=== PATIENT | male | born 1975 | race Two or more races ===

== ENCOUNTER 2018-09-08 18:32 | Emergency (ER) | payer SELFPAY ==
[~2018-09-08] VITALS: Ht 170.2 cm; Wt 77.1 kg
--- NOTE | 2018-09-08 18:58 | PHYS DOC ---
Adult General Chief Complaint Chief Complaint: ABDOMINAL PAIN HPI HPI Patient is a 43 year old male presented to ER today for evaluation of epigastric abdominal pain since yesterday. Symptoms have been getting worse toda y, associated with nausea vomiting. Patient was seen at [facility] about 6 months ago for the same problem, diagnosed with H. pylori infection, he was given antibiotics and took the medications did get better. Patient was eating something yesterday and the symptoms started again. She denies any fever. Patient denies any vomiting blood, no dark stool. he says he is not an alcoholic. Review of Systems Review of Systems Constitutional: Denies fever or chills [] Eyes: Denies change in visual acuity, redness, or eye pain [] HENT: Denies nasal congestion or sore throat [] Respiratory: Denies cough or shortness of breath [] Cardiovascular: No additional information not addressed in HPI [] GI: Positive for abdominal pain, nausea, vomiting, NO bloody stools or diarrhea [] : Denies dysuria or hematuria [] Musculoskeletal: Denies back pain or joint pain [] Integument: Denies rash or skin lesions [] Neurologic: Denies headache, focal weakness or sensory changes [] Endocrine: Denies polyuria or polydipsia [] All other systems were reviewed and found to be within normal limits, except as documented in this note. Current Medications Current Medications Current Medications Medications (Trade) Dose Ordered Sig/Kimber Start Time Stop Time Status Last Admin Dose Admin Famotidine (Pepcid Vial) 20 mg 1X ONCE 09/08/18 19:30 09/08/18 19:31 DC 09/08/18 19:28 20 MG Info (CONTRAST GIVEN -- Rx MONITORING) 1 each PRN DAILY PRN 09/08/18 20:00 09/10/18 19:59 Iohexol (Omnipaque 300 Mg/ml) 75 ml 1X ONCE 09/08/18 20:15 09/08/18 20:16 DC 09/08/18 20:09 75 ML Multi-Ingredient Mouthwash/Gargle (Gi Cocktail) 20 ml 1X ONCE 09/08/18 19:30 09/08/18 19:31 DC 09/08/18 19:28 20 ML Ondansetron HCl (Zofran) 4 mg 1X ONCE 09/08/18 19:30 09/08/18 19:31 DC 09/08/18 19:28 4 MG Sodium Chloride 1,000 ml @ 1,000 mls/hr 1X ONCE 09/08/18 19:30 09/08/18 20:29 DC 09/08/18 19:28 1,000 MLS/HR Allergies Allergies Allergies Coded Allergies Type Severity Reaction Last Updated Verified No Known Drug Allergies 09/08/18 No Physical Exam Physical Exam Constitutional: Well developed, well nourished, no acute distress, non-toxic appearance. [] HENT: Normocephalic, atraumatic, bilateral external ears normal, oropharynx moist, no oral exudates, nose normal. [] Eyes: PERRLA, EOMI, conjunctiva normal, no discharge. [] Neck: Normal range of motion, no tenderness, supple, no stridor. [] Cardiovascular:Heart rate regular rhythm, no murmur [] Lungs & Thorax: Bilateral breath sounds clear to auscultation [] Abdomen: Bowel sounds normal, soft, There is tenderness to palpation in epigastric area, no masses, no pulsatile masses. [] Skin: Warm, dry, no erythema, no rash. [] Back: No tenderness, no CVA tenderness. [] Extremities: No tenderness, no cyanosis, no clubbing, ROM intact, no edema. There two healing wound on left leg. Neurologic: Alert and oriented X 3, normal motor function, normal sensory function, no focal deficits noted. [] Psychologic: Affect normal, judgement normal, mood normal. [] Current Patient Data Vital Signs Vital Signs Date Time Temp Pulse Resp B/P (MAP) Pulse Ox O2 Delivery O2 Flow Rate FiO2 09/08/18 20:49 62 18 110/71 (84) 98 Room Air 09/08/18 18:48 97.6 97.6 Lab Values Laboratory Tests Test 09/08/18 19:26 09/08/18 20:12 White Blood Count 13.0 x10^3/uL (4.0-11.0) H Red Blood Count 5.34 x10^6/uL (4.30-5.70) Hemoglobin 15.8 g/dL (13.0-17.5) Hematocrit 45.8 % (39.0-53.0) Mean Corpuscular Volume 86 fL (79-100) Mean Corpuscular Hemoglobin 30 pg (25-35) Mean Corpuscular Hemoglobin Concent 35 g/dL (31-37) Red Cell Distribution Width 12.5 % (11.5-14.5) Platelet Count 381 x10^3/uL (140-400) Neutrophils (%) (Auto) 91 % (31-73) H Lymphocytes (%) (Auto) 5 % (24-48) L Monocytes (%) (Auto) 3 % (0-9) Eosinophils (%) (Auto) 0 % (0-3) Basophils (%) (Auto) 0 % (0-3) Neutrophils # (Auto) 11.8 x10^3/uL (1.8-7.7) H Lymphocytes # (Auto) 0.7 x10^3/uL (1.0-4.8) L Monocytes # (Auto) 0.4 x10^3/uL (0.0-1.1) Eosinophils # (Auto) 0.0 x10^3/uL (0.0-0.7) Basophils # (Auto) 0.1 x10^3/uL (0.0-0.2) Segmented Neutrophils % 90 % (35-66) H Lymphocytes % 6 % (24-48) L Monocytes % 4 % (0-10) Platelet Estimate Increased (ADEQUATE) Anisocytosis Slight Sodium Level 136 mmol/L (136-145) Potassium Level 4.2 mmol/L (3.5-5.1) Chloride Level 100 mmol/L (98-107) Carbon Dioxide Level 29 mmol/L (21-32) Anion Gap 7 (6-14) Blood Urea Nitrogen 11 mg/dL (8-26) Creatinine 0.9 mg/dL (0.7-1.3) Estimated GFR (Cockcroft-Gault) 91.7 BUN/Creatinine Ratio 12 (6-20) Glucose Level 121 mg/dL (70-99) H Calcium Level 8.9 mg/dL (8.5-10.1) Total Bilirubin 0.4 mg/dL (0.2-1.0) Aspartate Amino Transferase (AST) 28 U/L (15-37) Alanine Aminotransferase (ALT) 73 U/L (16-63) H Alkaline Phosphatase 75 U/L (46-116) Total Protein 7.4 g/dL (6.4-8.2) Albumin 3.0 g/dL (3.4-5.0) L Albumin/Globulin Ratio 0.7 (1.0-1.7) L Lipase 92 U/L (73-393) Urine Color Yellow Urine Clarity Clear Urine pH 7.5 Urine Specific [place] >=1.030 Urine Protein Negative mg/dL (NEG-TRACE) Urine Glucose (UA) Negative mg/dL (NEG) Urine Ketones (Stick) Negative mg/dL (NEG) Urine Blood Negative (NEG) Urine Nitrite Negative (NEG) Urine Bilirubin Negative (NEG) Urine Urobilinogen Dipstick 1.0 mg/dL (0.2 mg/dL) Urine Leukocyte Esterase Negative (NEG) Urine RBC 0 /HPF (0-2) Urine WBC Occ /HPF (0-4) Urine Squamous Epithelial Cells Occ /LPF Urine Bacteria 0 /HPF (0-FEW) Laboratory Tests 09/08/18 19:26 Laboratory Tests 09/08/18 19:26 EKG EKG [] Radiology/Procedures Radiology/Procedures [][facility] [address] [place], [place] [id number] IMAGING REPORT Signed PATIENT: DULCE MARIA AZAR ACCOUNT: [id number] : 1975 LOCATION: ER AGE: 43 SEX: M EXAM STATUS: REG ER ORD. PHYSICIAN: ANGLE REYES DO REASON: MID UPPER abdominal pain SINCE YESTERDAY PROCEDURE: CT ABD PELV W/ IV CONTRST ONLY CT SCAN OF THE ABDOMEN AND PELVIS WITH IV CONTRAST. History: Mid and upper abdominal pain since yesterday Comparison:None. Procedure: Contiguous axial images of the abdomen and pelvis were performed after the administration of 75 cc of Omni 350 IV contrast and without oral contrast. CT Abdomen with contrast: Findings: Liver: Unremarkable Spleen: Unremarkable Pancreas: Unremarkable Adrenal Glands: Unremarkable Kidneys: Unremarkable There is no mass or lymphadenopathy. There is no free air. There is no free fluid. The appendix is normal. Impression: No acute findings. End Impression CT Pelvis with Contrast: Findings: There is fat-containing inguinal canal hernias left greater than right. The urinary bladder appears normal. There is no free fluid. There is no lymphadenopathy. Impression: No acute findings. PQRS Compliance Statement: One or more of the following individualized dose reduction techniques were utilized for this examination: 1. Automated exposure control 2. Adjustment of the mA and/or kV according to patient size 3. Use of iterative reconstruction technique Electronically signed by: Phyllis Kendrick III, MD (09/08/2018 9:21 PM) [facility] DICTATED and SIGNED BY: PHYLLIS KENDRICK III, MD DATE: 09/08/182120 Course & Med Decision Making Course & Med Decision Making Pertinent Labs and Imaging studies reviewed. (See chart for details) [] Dragon Disclaimer Dragon Disclaimer This electronic medical record was generated, in whole or in part, using a voice recognition dictation system. Departure Departure Impression: Primary Impression: Acute gastritis Disposition: HOME, SELF-CARE Condition: STABLE Referrals: NO PCP (PCP) follow up with your family doctor for further evaluation and referral to a GI specialist Patient Instructions: Gastritis, Adult Scripts Omeprazole Magnesium (PRILOSEC OTC) 20 Mg Tablet. 1 TAB PO DAILY, #30 TAB 3 Refills Prov: ANGLE REYES DO 09/08/18 Sucralfate (CARAFATE) 1 Gm Tablet 1 TAB PO QID for 14 Days, #56 TAB 1 Refill Prov: ANGLE REYES DO 09/08/18 ANGLE REYES DO Sep 08, 2018 18:58
[2018-09-08] MEDS ORDERED: ONDANSETRON PF 4 MG/2 ML VIAL. IV ONE (19:30)
[2018-09-08] MEDS ORDERED: LIDO:MAALOX 1:1 20 ML SINGLE DOSE. SWSW ONE (19:30)
[2018-09-08] MEDS ORDERED: FAMOTIDINE 20 MG/2 ML VIAL IVP ONE (19:30)
[2018-09-08] MEDS ORDERED: IV NORMAL SALINE 1000ML BAG 1,000 ML IV ONE (19:30)
[2018-09-08 19:32] LABS: BASO # 0.1 x10^3/uL (0.0-0.2); BASO % 0 % (0-3); EOS % 0 % (0-3); HEMATOCRIT 45.8 % (39.0-53.0); HEMOGLOBIN 15.8 g/dL (13.0-17.5); LYMPH # 0.7 x10^3/uL (1.0-4.8); LYMPH % 5 % (24-48); MEAN CORPUSCULAR HEMOGLOBIN 30 pg (25-35); MEAN CORPUSCULAR HGB CONC 35 g/dL (31-37); MEAN CORPUSCULAR VOLUME 86 fL (79-100); MONO # 0.4 x10^3/uL (0.0-1.1); MONO % 3 % (0-9); NEUT # 11.8 x10^3/uL (1.8-7.7); NEUT % 91 % (31-73); PLATELET COUNT 381 x10^3/uL (140-400); RED BLOOD COUNT 5.34 x10^6/uL (4.30-5.70); RED CELL DISTRIBUTION WIDTH 12.5 % (11.5-14.5)
[2018-09-08 19:45] LABS: CALCIUM 8.9 mg/dL (8.5-10.1); CREATININE 0.9 mg/dL (0.7-1.3); GFR 91.7; POTASSIUM 4.2 mmol/L (3.5-5.1)
[2018-09-08 19:46] LABS: ALBUMIN/GLOBULIN RATIO 0.7 (1.0-1.7); TOTAL BILIRUBIN 0.4 mg/dL (0.2-1.0); TOTAL PROTEIN 7.4 g/dL (6.4-8.2)
[2018-09-08] MEDS ORDERED: CONTRAST GIVEN. MC PRN (20:00)
[2018-09-08] MEDS ORDERED: IOHEXOL 300 MG/ML 100ML VIAL. IV ONE (20:15)
[2018-09-08 20:18] LABS: % LYMPHS 6 % (24-48); % MONOS 4 % (0-10); % SEGS 90 % (35-66); ANISOCYTOSIS SLIGHT; PLT ESTIMATE INCREASED (ADEQUATE)
[2018-09-08 20:25] LABS: BILIRUBIN,URINE NEGATIVE (NEG); CLARITY,URINE CLEAR; COLOR,URINE YELLOW; NITRITE,URINE NEGATIVE (NEG); PH,URINE 7.5; PROTEIN,URINE NEGATIVE (NEG-TRACE)
[2018-09-08 20:35] LABS: BACTERIA,URINE 0 /HPF (0-FEW); RBC,URINE 0 /HPF (0-2); SQUAMOUS EPITHELIAL CELL,UR OCC /LPF; WBC,URINE OCC /HPF (0-4)
--- NOTE | 2018-09-08 21:23 | RAD ---
CT SCAN OF THE ABDOMEN AND PELVIS WITH IV CONTRAST. History: Mid and upper abdominal pain since yesterday Comparison:None. Procedure: Contiguous axial images of the abdomen and pelvis were performed after the administration of 75 cc of Omni 350 IV contrast and without oral contrast. CT Abdomen with contrast: Findings: Liver: Unremarkable Spleen: Unremarkable Pancreas: Unremarkable Adrenal Glands: Unremarkable Kidneys: Unremarkable There is no mass or lymphadenopathy. There is no free air. There is no free fluid. The appendix is normal. Impression: No acute findings. End Impression CT Pelvis with Contrast: Findings: There is fat-containing inguinal canal hernias left greater than right. The urinary bladder appears normal. There is no free fluid. There is no lymphadenopathy. Impression: No acute findings. PQRS Compliance Statement: One or more of the following individualized dose reduction techniques were utilized for this examination: 1. Automated exposure control 2. Adjustment of the mA and/or kV according to patient size 3. Use of iterative reconstruction technique Electronically signed by: Mika Trinidad III, MD (09/08/2018 9:21 PM) [facility]
[2018-09-08] MEDS ORDERED: OMEP20TA63 PO (21:41)
[2018-09-08] MEDS ORDERED: SUCR1TAB35 PO (21:41)
[2018-09-08 21:49] VITALS: BP 113/73
== END 2018-09-08 21:59 | disposition home or self-care (01) ==
LOC: ER 18:32
DX: K29.00 Acute gastritis without bleeding (principal)
CPT/HCPCS: 36415; 74177; 80053; 81001; 83690; 85007; 85025; 96361; 96374; 96375; 99285; J2405; J3490; J7030; Q9967

== ENCOUNTER 2019-04-04 13:46 | Emergency (ER) | payer SELFPAY ==
[~2019-04-04] VITALS: Ht 170.2 cm; Wt 77.2 kg
[~2019-04-04 13:46] MED LIST: OMEP20TA63 PO; SUCR1TAB35 PO
[2019-04-04 14:16] VITALS: BP 133/82
--- NOTE | 2019-04-04 15:24 | RAD ---
Right hand 3 views. HISTORY: Right hand and thumb pain, index finger pain, fall 2 days ago 3 views were taken of the right hand. There is soft tissue swelling especially of the thumb and index finger. There is not evidence of a fracture or acute osseous abnormality. IMPRESSION: 1. Soft tissue swelling. 2. No fracture or acute osseous abnormality. Electronically signed by: Adama Neville MD (04/04/2019 2:42 PM) [id number]
[2019-04-04] MEDS ORDERED: NAPROXEN 500 MG TABLET PO STA (15:35)
[2019-04-04] MEDS ORDERED: SULF1TAB24 PO (15:40)
[2019-04-04] MEDS ORDERED: CEPH500C PO (15:40)
--- NOTE | 2019-04-04 15:40 | PHYS DOC ---
Past Medical History Past Medical History: Other Additional Past Medical Histor: H-PYLORI Past Surgical History: No Surgical History Smoking Status: Current Every Day Smoker Alcohol Use: None Drug Use: None Adult General Chief Complaint Chief Complaint: HAND PROBLEM HPI HPI Patient is a 44-year-old male, accompanied by significant other, who presents to the emergency department with complaints of right hand pain after falling 2 days ago. Patient states that his right thumb has been swollen with blood trapped underneath the fingernail since the fall. He states he believes his last tetanus shot was less than 5 years ago. Patient denies any drainage from the site. He currently rates the pain a 9 out of 10 on the pain scale, he describes it as pressure in his right thumb. He denies any alleviating factors, the pain increases with palpation or movement. Review of Systems Review of Systems All other ROS is negative unless otherwise noted in HPI. Allergies Allergies Allergies Coded Allergies Type Severity Reaction Last Updated Verified No Known Drug Allergies 09/08/18 No Physical Exam Physical Exam See Above Constitutional: Well developed, well nourished, no acute distress, non-toxic appearance. [] HENT: Normocephalic, atraumatic, bilateral external ears normal, nose normal. [] Eyes: PERRLA, EOMI, conjunctiva normal, no discharge. [] Neck: Normal range of motion, no stridor. [] Cardiovascular:Heart rate regular rhythm Lungs & Thorax: Respirations even and unlabored, no retractions, no respiratory distress Skin: scabbed abrasions noted to R thumb and R index finger no active drainage, R thumb erythremic and warm to touch, no streaking of redness into hand or up forearm. Extremities: Diffuse R thumb TTP without crepitus or obvious deformity; no cyanosis, no clubbing, ROM limited due to pain, 1+ edema of R thumb Neurologic: Alert and oriented X 3, normal motor function, normal sensory function, no focal deficits noted. [] Psychologic: Affect normal, judgement normal, mood normal. [] Current Patient Data Vital Signs Vital Signs Date Time Temp Pulse Resp B/P (MAP) Pulse Ox O2 Delivery O2 Flow Rate FiO2 04/04/19 14:16 98.5 68 18 133/82 (99) 98 Room Air 98.5 EKG EKG [] Radiology/Procedures Radiology/Procedures PROCEDURE: HAND RIGHT 3V Right hand 3 views. HISTORY: Right hand and thumb pain, index finger pain, fall 2 days ago 3 views were taken of the right hand. There is soft tissue swelling especially of the thumb and index finger. There is not evidence of a fracture or acute osseous abnormality. IMPRESSION: 1. Soft tissue swelling. 2. No fracture or acute osseous abnormality. Course & Med Decision Making Course & Med Decision Making Pertinent Labs and Imaging studies reviewed. (See chart for details) [] Dragon Disclaimer Dragon Disclaimer This electronic medical record was generated, in whole or in part, using a voice recognition dictation system. Departure Departure Impression: Primary Impression: Cellulitis of right thumb Additional Impressions: Hematoma, subungual, thumb, right Thumb pain Disposition: HOME, SELF-CARE Condition: STABLE Referrals: NO PCP (PCP) Patient Instructions: Cellulitis, [id number], Subungual Hematoma, [id number] Additional Instructions: Fill the prescriptions and take them as directed. Keep the affected area clean, and dry. Apply dressing over the affected thumbnail while it continues to drain. Follow-up with your primary care doctor in 1-2 days for reevaluation. Return to the ER symptoms worsen. Scripts Sulfamethoxazole/Trimethoprim (BACTRIM DS TABLET) 1 Each Tablet 1 TAB PO BID for 7 Days, #14 TAB 0 Refills Prov: NIYAH LAWRENCE APRN 04/04/19 Cephalexin (CEPHALEXIN) 500 Mg Capsule 2 CAP PO BID for 7 Days, #28 CAP 0 Refills Prov: NIYAH LAWRENCE APRN 04/04/19 Nail Trepanation Nail Trepanation : Nail Trepanation Location: R thumb Method of Drainage: nail cauterized (with Bovie) Sterile Dressing Applied: No Finger Splint: No Progress Moderate amount of pus and blood was expressed from beneath the right thumbnail, there were 4 different areas trephinated into the right thumbnail. Pt tolerated procedure well, minimal blood loss Problem Qualifiers Additional Impressions: Hematoma, subungual, thumb, right Encounter type: initial encounter Qualified Codes: S60.111A - Contusion of right thumb with damage to nail, initial encounter Thumb pain Laterality: right Qualified Codes: M79.644 - Pain in right finger(s) NIYAH LAWRENCE APRN Apr 04, 2019 15:40
== END 2019-04-04 15:53 | disposition home or self-care (01) ==
LOC: ER 13:46
DX: S60.111A Contusion of right thumb with damage to nail, initial encounter (principal); S60.410A Abrasion of right index finger, initial encounter; M79.644 Pain in right finger(s); L03.011 Cellulitis of right finger; F17.210 Nicotine dependence, cigarettes, uncomplicated; W19.XXXA Unspecified fall, initial encounter; Y93.89 Activity, other specified; Y92.89 Other specified places as the place of occurrence of the external cause; Y99.8 Other external cause status
CPT/HCPCS: 11740; 73130; 99283; 99285